=== PATIENT | female | born 1995 | race Caucasian/White ===

== ENCOUNTER 2020-03-25 23:59 | Emergency (ER) | payer OTHER ==
[~2020-03-25] VITALS: Ht 157.5 cm; Wt 46.3 kg
[2020-03-26 00:10] VITALS: Ht 157.5 cm; Wt 46.3 kg
[2020-03-26 02:36] VITALS: BP 115/86
== END 2020-03-26 02:36 | disposition home or self-care (01) ==
LOC: ED 23:59
DX: S09.8XXA Other specified injuries of head, initial encounter (principal); S39.012A Strain of muscle, fascia and tendon of lower back, initial encounter; V49.59XA Passenger injured in collision with other motor vehicles in traffic accident, initial encounter; Y93.89 Activity, other specified; Y92.413 State road as the place of occurrence of the external cause; Y99.8 Other external cause status
CPT/HCPCS: Q0092

== ENCOUNTER 2020-04-09 16:04 | Emergency (ER) | payer OTHER ==
[~2020-04-09] VITALS: Ht 154.9 cm; Wt 48.1 kg
[2020-04-09 16:25] VITALS: Ht 154.9 cm; Wt 48.1 kg
[2020-04-09 18:44] VITALS: BP 128/71
== END 2020-04-09 18:44 | disposition home or self-care (01) ==
LOC: ED 16:04
DX: F07.81 Postconcussional syndrome (principal)
CPT/HCPCS: J1200; J2405; J2765; J7030